=== PATIENT | female | born 1985 | race Caucasian/White ===

== ENCOUNTER 2021-12-07 06:40 | Outpatient (REF) | payer OTHER, SELFPAY ==
[2021-12-07 12:11] LABS: Alanine Aminotransferase 12 U/L (0-31); Anion Gap 15 (12-20); Aspartate Amino Transferase 14 U/L (5-31); Blood Urea Nitrogen 13 mg/dL (9-16); Calcium 9.2 mg/dL (8.4-10.2); Carbon Dioxide 24 mmol/L (22-29); Chloride 105 mmol/L (96-108); Cholesterol 167 mg/dL; Estimated Glomerular Filt Rate > 60; Glucose Fasting 97 mg/dL (60-99); HDL Cholesterol 45 mg/dL; LDL Cholesterol Calculated 103 mg/dl; Potassium 4.1 mmol/L (3.3-5.1); Sodium 140 mmol/L (135-145); Triglycerides 96 mg/dL
[2021-12-07 12:37] LABS: Vitamin D 25-OH Total 20.4 ng/mL (>30)
== END 2021-12-07 06:41 | disposition home or self-care (01) ==
LOC: HO.HMGCLDS 06:40
PROVIDERS: Visit Provider Internal Medicine
DX: Z00.01 Encounter for general adult medical examination with abnormal findings (principal); Z13.220 Encounter for screening for lipoid disorders
CPT/HCPCS: 36415; 80048; 80061; 82306; 84450; 84460

== ENCOUNTER 2024-05-31 08:10 | Outpatient (AMB) | payer OTHER, SELFPAY ==
[2024-05-31 08:10] VITALS: BP 106/70; PULSE 72; TEMP 36.8; O2SAT 98; BMI 30.4
--- NOTE | 2024-05-31 08:10 | AM.OFFWIN_ITS ---
Intake Vital Signs 05/31/24 08:10 Height 5 ft 5 in Weight 183 lb BMI 30.4 BP 106/70 Blood Pressure Location Lt brachial Position Sitting Pulse 72 Pulse Source Pulse Oximeter Temp 98.2 F Temp Source Oral Pulse Oximetry (%) 98 Intake Visit Reasons: EP Cough, SOB Intake Note: pt is here for cough and SOB Patient Tobacco Use Status: Former Tobacco user Allergies aspirin Adverse Reaction (Unknown, Verified 05/31/24 08:11) nose bleed Do you need a note to return to daycare/school/sports/work: Yes HPI HPI Comments History of Present Illness Details Patient is a 38-year-old female complaining of 2 days of a cough and shortness of breath, has well as chest tightness. She states that 2 days ago sh seda was cleaning the basement itchy thought her cough and irritation was from the dust in the basement but it seems to be continuing. She states she tested for COVID last night and this morning in both tests were negative. She denies any head congestion chest congestion sinus pain ear pain chest pain wheezing or fevers. She states she was bringing the garbage pills to the curb and she felt winded and she felt winded bringing groceries into the house. [facility] Medical History (Updated 05/31/24 @ 08:31 by Abigail Mendez PA-C) Acne vulgaris Generalized anxiety disorder Obesity (BMI 30.0-34.9) Asymptomatic microscopic hematuria Psoriasis Surgical History (Updated 03/14/23 @ 09:20 by Tresa Walden MD) Hx of breast reduction, elective No pertinent past surgical history Family History Father Alcoholism Acute [place] Paternal Grandmother Breast cancer Diabetes mellitus Social History Housing: House Patient Tobacco Use Status: Former Tobacco user e-Cigarette/Vaping Use: Never Used service: No Current occupational status: employed Cognitive needs: No Hearing needs: No Vision needs: No Review of Systems Const All systems reviewed & are unremarkable except as noted in HPI and below Physical Exam Vital Signs: Last Vital Signs Temp 98.2 F 05/31/24 08:10 Pulse 72 05/31/24 08:10 BP 106/70 05/31/24 08:10 Pulse Ox 98 07/18/24 08:10 BMI result Body Mass Index 30.4 Const General: cooperative, healthy appearing, comfortable and no acute distress Orientation/consciousness: patient oriented x3 Limitations: no limitations HEENT Head: Yes normal to inspection Ears: hearing grossly normal bilaterally, external ears normal and TM's normal bilaterally General nose exam: Normal external nose present, Normal nares present and No nasal discharge present Face and sinus: Yes normal facial exam and Yes sinuses nontender Mouth: Normal oral and palatal mucosa present and moist mucous membranes Throat: Yes tonsils normal, Yes uvula midline, Yes posterior oropharynx abnormal (Erythema) and Yes cobblestoning Eyes General: appearance normal, both eyes and all related structures Neck Neck: Yes normal visual inspection Resp Effort & Inspection: normal respiratory effort, able to speak in complete sentences, Actively coughing, no respiratory distress, not tachypneic, no tripod positioning and no use of accessory muscles Auscultation: clear to auscultation bilaterally Cardio Rate: regular rate Rhythm: regular rhythm Heart sounds: normal S1 and S2 Skin General skin exam: no rashes or lesions noted Neuro General: patient oriented x3 Extrem General: Yes normal to inspection and Yes no clubbing, cyanosis or edema Assessment & Plan Assessment & Plan (1) Environmental allergies: Code(s): Z91.09 - Other allergy status, other than to drugs and biological substances Plan: Vital signs are stable, physical exam revealed cobblestoning, likely allergies recommended [id number] allergy medication daily if no improvement in her symptoms, she already has a an appointment with her PCP on Tuesday. Gave red flag warning signs and when to call 911. Plan See above Coding Level of Care Code Est Pt Level 3 (41801) Diagnoses Environmental allergies Z91.09
== END 2024-05-31 08:42 | disposition home or self-care (01) ==
PROVIDERS: PCP Internal Medicine; Visit Provider Physician Assistant
DX: Z91.09 Other allergy status, other than to drugs and biological substances (principal)
CPT/HCPCS: 99213

== ENCOUNTER 2024-06-01 15:46 | Outpatient (AMB) | payer OTHER, SELFPAY ==
--- NOTE | 2024-06-01 15:53 | AM.OFFWIN_ITS ---
Intake Vital Signs 06/01/24 15:54 Height 5 ft 5 in Weight 183 lb BMI 30.4 BP 118/80 Blood Pressure Location Rt brachial Position Sitting Pulse 102 H Pulse Source Pulse Oximeter Temp 103.1 F H Temp Source Oral Pulse Oximetry (%) 97 Oxygen Delivery Method Room Air Intake Visit Reasons: EP chills, sweats Intake Note: pt c/o cough, chest tightness, chills/sweats. Started Tuesday Patient Tobacco Use Status: Former Tobacco user Allergies aspirin Adverse Reaction (Unknown, Verified 06/01/24 15:53) nose bleed Do you need a note to return to daycare/school/sports/work: No HPI HPI Comments History of Present Illness Details 38 y/o female patient who presents to [facility] with c/o coughing, chest tightness, generalized malaise and high fever. Reports symptoms started Tuesday. She has been testing at home for COVID with negative results. Denies Nausea or vomiting. Reports good appetite. [facility] Medical History (Updated 05/31/24 @ 08:31 by Abigail Mendez PA-C) Acne vulgaris Generalized anxiety disorder Obesity (BMI 30.0-34.9) Asymptomatic microscopic hematuria Psoriasis Surgical History (Updated 03/14/23 @ 09:20 by Tresa Walden MD) Hx of breast reduction, elective No pertinent past surgical history Family History Father Alcoholism Acute [place] Paternal Grandmother Breast cancer Diabetes mellitus Social History Housing: House Patient Tobacco Use Status: Former Tobacco user e-Cigarette/Vaping Use: Never Used service: No Current occupational status: employed Cognitive needs: No Hearing needs: No Vision needs: No Review of Systems Const All systems reviewed & are unremarkable except as noted in HPI and below Physical Exam Vital Signs: Last Vital Signs Temp 103.1 F H 06/01/24 15:54 Pulse 102 H 06/01/24 15:54 BP 118/80 06/01/24 15:54 Pulse Ox 97 06/01/24 15:54 Oxygen Delivery Method Room Air 06/01/24 15:54 BMI result Body Mass Index 30.4 Const General: comfortable and no acute distress Orientation/consciousness: patient oriented x3 HEENT Head: Yes normocephalic Ears: external ears normal and TM's normal bilaterally General nose exam: Normal nasal mucous membranes and turbinates present Resp Effort & Inspection: normal respiratory effort, able to speak in complete sentences and Actively coughing Auscultation: clear to auscultation bilaterally, no crackles, no rales, no rhonchi and no wheezes Cardio Heart sounds: S1 normal heart sound present and S2 normal heart sound present Neuro General: patient oriented x3, gait normal and moves all extremities Psych Speech and movement: Normal speech and movement present Assessment & Plan Assessment & Plan (1) Cough in adult: Code(s): R05.9 - Cough, unspecified Plan: OTC cough remedies Warm fluids with honey Rest (2) Fever: Code(s): R50.9 - Fever, unspecified Qualifiers: Fever type: unspecified Qualified Code(s): R50.9 - Fever, unspecified Plan: Acetaminophen for pain relief Medications: New acetaminophen 1,000 mg (2 x 500 mg) PO Q6H PRN 30 caps 0RF fever R50.9 - Fever, unspecified doxycycline hyclate 100 mg PO BID 10 days 20 caps 0RF R05.9 - Cough, unspecified prednisone 50 mg PO DAILY 3 days 3 tabs 0RF R05.9 - Cough, unspecified benzonatate 100 mg PO TID 60 caps 0RF R05.9 - Cough, unspecified Coding Level of Care Code Est Pt Level 3 (52201) Diagnoses Cough in adult R05.9 Fever, unspecified fever cause R50.9 Fever type: unspecified Time Spent (min) 15
[2024-06-01 15:54] VITALS: BP 118/80; PULSE 102; TEMP 39.5; O2SAT 97; BMI 30.4
== END 2024-06-01 16:17 | disposition home or self-care (01) ==
PROVIDERS: PCP Internal Medicine; Visit Provider Nurse Practitioner Family
DX: R05.9 Cough, unspecified (principal); R50.9 Fever, unspecified
CPT/HCPCS: 99213

== ENCOUNTER 2024-06-04 08:14 | Outpatient (AMB) | payer OTHER, SELFPAY ==
[2024-06-04 08:22] VITALS: BP 110/70; PULSE 84; O2SAT 98; BMI 30.2
--- NOTE | 2024-06-04 08:22 | MHC.PC.OV ---
Vital Signs 06/04/24 08:22 Height 5 ft 5 in Weight 181 lb 8 oz BMI 30.2 BP 110/70 Blood Pressure Location Lt brachial Position Sitting Pulse 84 Pulse Source Pulse Oximeter Pulse Oximetry (%) 98 Oxygen Delivery Method Room Air Intake Visit Reasons: Annual PE Intake Note: Pt is here today for her PE: Last papsmear 11/27/20 Is last menstrual period known: Yes Last menstrual period: 05/18/24 Allergies aspirin Adverse Reaction (Unknown, Verified 06/04/24 08:35) nose bleed Medication List - Last Reconciled 06/04/24 by Tresa Walden MD acetaminophen 1,000 mg (2 x 500 mg) PO Q6H PRN benzonatate 100 mg PO TID buspirone 5 mg PO BID doxycycline hyclate 100 mg PO BID 10 days fluoride (sodium) 1.1% (SF 5000 Plus) appl PO levonorgestrel (Liletta) intrauterine risankizumab-rzaa (Skyrizi) mg subcut Tobacco use date assessed: 06/04/24 Dental Screening Dental Screen Date: 06/04/24 Did you have a dental visit in the last 12 months?: Yes Did you have a dental problem in the last 6 months where you did not have access to dental care?: No Was dental information given to patient?: Patient has dentist HPI Annual PE HPI Details 38 Year old lady here today for physical exam. She is up-to-date with her cervical cancer screening, last done 2020 with normal findings done at [facility] with Dr. Galvan. Currently sees Dr. Parsons , receiving treatment for her psoriasis, currently on Skyrizi with good results. She takes buspirone 5 mg 1 tablet twice a day for her generalized anxiety disorder which has been helping. [facility] Medical History (Updated 06/04/24 @ 09:11 by Tresa Walden MD) History of vitamin D deficiency Acne vulgaris Generalized anxiety disorder Obesity (BMI 30.0-34.9) Asymptomatic microscopic hematuria Psoriasis Surgical History Hx of breast reduction, elective No pertinent past surgical history Family History Father Alcoholism Acute [place] Paternal Grandmother Breast cancer Diabetes mellitus Social History Housing: House Patient Tobacco Use Status: Former Tobacco user e-Cigarette/Vaping Use: Never Used service: No Current occupational status: employed Cognitive needs: No Hearing needs: No Vision needs: No Female Reproductive History Menstrual Date of last menstrual period: 05/18/24 Questionnaire PHQ-9 Over the last 2 weeks, how often have you been bothered by any of the following problems? 1. Little interest or pleasure in doing things: not at all 2. Feeling down, depressed, or hopeless: not at all 3. Trouble falling or staying asleep, or sleeping too much: not at all 4. Feeling tired or having little energy: not at all 5. Poor appetite or overeating: not at all 6. Feeling bad about yourself - or that you are a failure or have let yourself or your family down: not at all 7. Trouble concentrating on things, such as reading the newspaper or watching television: not at all 8. Moving or speaking so slowly that other people could have noticed. Or the opposite - being so fidgety or restless that you have been moving around a lot more than usual: not at all 9. Thoughts that you would be better off or of hurting yourself in some way: not at all Total score: 0 Depression Screening Interpretation: Negative Depression Screening Done: Yes 15089 - PHQ-9 Billing: Yes Source: Developed by Drs. Arias Quan, Leti Maldonado, Antwon Milner and colleagues, with an educational el from [employer] ([employer] Thrive Questionnaire Date Thrive assessed: 06/04/24 I am a: Patient What is your living situation today?: I have a steady place to live Within the past 12 months, did the food you bought not last and you didn't have the money to get more?: Never true Within the past 12 months, did you worry whether your food would run out before you got money to buy more?: Never true Do you have trouble paying for medicines?: No Do you have trouble getting transportation to medical appointments?: No Do you have trouble paying your heating and electricity bill?: No Do you have trouble taking care of your child, family member or friend?: No Do you have trouble with day-to-day activities such as bathing, preparing meals, shopping, managing finances, etc.?: No Are you currently unemployed and looking for a job?: No Are you interested in more education?: No Please select the resources that you would like help with: Housing/Fci Currently or been in a relationship where the following occur: No concerns reported THRIVE Score: 0 AUDIT C Alcohol Use Questionnaire (AUDIT-C) 1. How often do you have a drink containing alcohol?: Monthly or less 2. How many drinks containing alcohol do you have on a typical day when you are drinking?: 1 or 2 3. How often do you have six or more drinks on one occasion?: Never Total Score: 1 ADRIANNA-7 AMB Questionnaire ADRIANNA-7 Date ADRIANNA - 7 assessed: 06/04/24 Feeling nervous, anxious, or on edge: 0 = Not at all Not being able to stop or control worryin = Not at all Worrying too much about different things: 0 = Not at all Trouble relaxin = Not at all Being so restless that it is hard to sit still: 0 = Not at all Becoming easily annoyed or irritable: 0 = Not at all Feeling afraid as if something awful might happen: 0 = Not at all Total ADRIANNA-7 score (0-4 normal; 5-9 mild; 10-14 moderate; 15-21 severe): 0 Source: Developed by Drs. Arias Quan, Leti Maldonado, Antwon Milner and colleagues, with an educational el from [employer] ([employer] ADRIANNA-7 Assessment Billing ADRIANNA-7 Assessment Tool: ADRIANNA-7 Assessment 09998 Review of Systems Const Denies body aches, Denies fatigue, Denies fever(s), Denies headache(s), Denies weakness and Reports weight loss Eyes Reports no additional complaints ENT Reports Normal hearing present and Denies headache(s) Card Denies chest pain, Denies lightheadedness, Denies palpitations and Denies dyspnea Resp Denies chest congestion, Denies cough, Denies dyspnea and Denies wheezing GI Denies abdominal pain, Denies change in bowel habits and Denies heartburn Denies urinary frequency and Denies urinary urgency Musc Reports no additional complaints Skin/Breast Denies breast pain, Denies breast mass and Denies rash Neuro Reports Normal hearing present, Denies headache(s), Denies Sensory deficit (Neuro) and Denies weakness Psych Reports no additional complaints Endo Denies fatigue and Denies palpitations Wei/Lymph Reports no additional complaints Aller/Immun Denies wheezing Physical exam (Primary Care) Vital Signs: Last Vital Signs Pulse 84 06/04/24 08:22 BP 110/70 06/04/24 08:22 Pulse Ox 98 06/04/24 08:22 Oxygen Delivery Method Room Air 06/04/24 08:22 BMI result Body Mass Index 30.2 Tobacco/Smoking Status: Tobacco use Status Tobacco use date assessed 06/04/24 06/04/24 08:31 Patient Tobacco Use Status Former Tobacco user 06/04/24 08:23 e-Cigarette/Vaping Use Never Used 06/04/24 08:23 PHQ-9: PHQ-9 Score PHQ-9: Total score 0 06/04/24 09:14 Depression Screening Interpretation: Negative Thrive Assessment: Date of Thrive Assessment Date Thrive assessed 06/04/24 06/04/24 08:31 Currently or been in a relationship where the following occur: No concerns reported Const General: no acute distress and alert Orientation/consciousness: patient oriented x3 Limitations: no limitations HENMT Head: Yes normal to inspection, Yes normocephalic and Yes atraumatic Ears: hearing grossly normal bilaterally, external ears normal, TM's normal bilaterally and EAC's normal General nose exam: Normal external nose present, Normal nasal mucous membranes and turbinates present and No nasal discharge present Face and sinus: Yes face symmetric Mouth: Normal oral and palatal mucosa present, tongue normal and moist mucous membranes Eyes Conjunctivae: conjunctivae normal Sclerae: sclerae normal Pupils: Equal, round and reactive pupils present EOM: EOMs intact bilaterally Neck Neck: Yes full ROM and Yes no lymphadenopathy Thyroid: Thyroid normal Carotids: normal carotid upstroke Chest Chest palpation & inspection: normal inspection of the chest Resp Effort & Inspection: normal respiratory effort and able to speak in complete sentences Auscultation: clear to auscultation bilaterally Cardio Jugular venous distension: no JVD Rate: regular rate Rhythm: regular rhythm Heart sounds: S1 normal heart sound present and S2 normal heart sound present GI Inspection: Yes normal to inspection Palpation (GI): Soft to palpation Auscultation: normal bowel sounds General: Yes no CVA tenderness Back/Spine/Pelvis Back: no CVA tenderness and No back tenderness Skin Other: Surgical scar noted on under side of both breasts and lower abdomen status post mammoplasty and tummy tuck a month ago Neuro General: patient oriented x3, gait normal, moves all extremities, no focal motor deficits and CN's II-XI intact bilaterally Cranial nerves: Yes Equal, round and reactive pupils present and Yes Normal hearing present Cognition (Neuro): normal cognition Gait exam (Neuro): Normal gait present Motor exam (neuro): 5/5 motor strength present throughout Sensory Exam: No Sensory deficit (Neuro) Extrem General: Yes normal to inspection, Yes full ROM, Yes no pedal edema and Yes normal gait Psych Appearance: grossly normal and well kempt Mental Status: mental status grossly normal Speech and movement: Normal speech and movement present Affect: Anxious affect present Attitude: cooperative Thought process: Normal thought process present Thought content: Normal thought content present Assessment and Plan Assessment & Plan (1) Annual visit for general adult medical examination with abnormal findings: Code(s): Z00.01 - Encounter for general adult medical examination with abnormal findings Plan: Will check appropriate labs. Continue regular dental visit every 6 months and regular eye exams, at least every 2 years. Take adequate calcium in diet and vitamin-D 3 at 2000 IU per cap once a day, in addition to weight-bearing exercises to help maintain good muscle tone and weight control. Instructed to do self-breast exam, and recommended to get yearly mammogram, starting at age 40. Up-to-date with her cervical cancer screening, goes to [facility], sees Dr. Galvan. She has had COVID vaccines in the past but does not want to get the booster, does not get flu shots or Tdap Orders: Orders Alanine Aminotransferase 06/04/24 Z00.01 - Encounter for general adult medical examination with abnormal findings, Z13.1 - Encounter for screening for diabetes mellitus, Z13.220 - Encounter for screening for lipoid disorders, Z86.39 - Personal history of other endocrine, nutritional and metabolic disease Basic Metabolic Panel Fasting 06/04/24 Z00.01 - Encounter for general adult medical examination with abnormal findings, Z13.1 - Encounter for screening for diabetes mellitus, Z13.220 - Encounter for screening for lipoid disorders, Z86.39 - Personal history of other endocrine, nutritional and metabolic disease Lipid Panel 06/04/24 Z00.01 - Encounter for general adult medical examination with abnormal findings, Z13.1 - Encounter for screening for diabetes mellitus, Z13.220 - Encounter for screening for lipoid disorders, Z86.39 - Personal history of other endocrine, nutritional and metabolic disease Vitamin D 25-OH Total 06/04/24 Z00.01 - Encounter for general adult medical examination with abnormal findings, Z13.1 - Encounter for screening for diabetes mellitus, Z13.220 - Encounter for screening for lipoid disorders, Z86.39 - Personal history of other endocrine, nutritional and metabolic disease Aspartate Amino Transferase 06/04/24 Z00.01 - Encounter for general adult medical examination with abnormal findings, Z13.1 - Encounter for screening for diabetes mellitus, Z13.220 - Encounter for screening for lipoid disorders, Z86.39 - Personal history of other endocrine, nutritional and metabolic disease Medications: New albuterol sulfate 90 mcg/actuation 2 puffs inhalation Q6H PRN 8.5 grams 0RF shortness of breath or wheezing Changed From buspirone 5 mg PO BID 60 tabs 0RF F41.1 - Generalized anxiety disorder To buspirone 5 mg PO BID 3 months 180 tabs 4RF F41.1 - Generalized anxiety disorder Coding Level of Care Code Est Pt Prev Care 18-39y(63554) Diagnoses Annual visit for general adult medical examination with abnormal findings Z00. Additional Codes ADRIANNA-7 Assessment Billing - ADRIANNA-7 Assessment Tool: ADRIANNA-7 Assessment 01331 ([id number])
== END 2024-06-04 09:25 | disposition home or self-care (01) ==
PROVIDERS: PCP Internal Medicine; Visit Provider Internal Medicine
DX: Z00.00 Encounter for general adult medical examination without abnormal findings (principal)
CPT/HCPCS: 99395

== ENCOUNTER 2024-12-11 08:57 | Outpatient (AMB) | payer OTHER, SELFPAY ==
--- NOTE | 2024-12-11 10:10 | MHC.OFFWIV ---
Intake Vital Signs 12/11/24 10:11 Weight 177 lb BP 112/80 Blood Pressure Location Rt brachial Position Sitting Pulse 71 Pulse Source Pulse Oximeter Intake Visit Reasons: EP-constipation Intake Note: Patient here for constipation that has been present a while. Patient Tobacco Use Status: Former Tobacco user Allergies aspirin Adverse Reaction (Unknown, Verified 12/11/24 10:12) nose bleed HPI HPI Comments History of Present Illness Details This is a 39-year-old female with a past medical history of anxiety presenting for evaluation of constipation. Patient states this has been a lifelong issue for her in her current regimen is taking a probiotic, fiber gummy and Colace daily. Patient states since giving up ?junk food? at the beginning of the year her bowel movements have become significantly less frequent. Patient states she is only having 1 bowel movement a week but she has to take a Dulcolax laxative to initiate a bowel movement. Patient's last bowel movement was this morning. She denies having any nausea, vomiting, abdominal cramping, dark or bloody stools. Additionally, patient has previous abdominal surgical history includes abdominoplasty only. REPLACED BY [facility] Medical History (Updated 12/11/24 @ 10:58 by Maia Ceballos PA-C) History of vitamin D deficiency Acne vulgaris Generalized anxiety disorder Obesity (BMI 30.0-34.9) Asymptomatic microscopic hematuria Psoriasis Surgical History Hx of breast reduction, elective No pertinent past surgical history Family History Father Alcoholism Acute [place] Paternal Grandmother Breast cancer Diabetes mellitus Social History Housing: House Patient Tobacco Use Status: Former Tobacco user e-Cigarette/Vaping Use: Never Used service: No Current occupational status: employed Cognitive needs: No Hearing needs: No Vision needs: No Review of Systems Const All systems reviewed & are unremarkable except as noted in HPI and below Eyes Reports no additional complaints ENT Reports no additional complaints Card Reports no additional complaints Resp Reports no additional complaints GI Denies abdominal pain, Reports constipation, Denies GI cramping, Denies diarrhea, Denies loose stools, Denies nausea and Denies vomiting Reports no additional complaints Musc Reports no additional complaints Skin/Breast Reports system reviewed and no additional complaints, except as documented Neuro Reports no additional complaints Psych Reports no additional complaints Endo Reports no additional complaints Wei/Lymph Reports no additional complaints Aller/Immun Reports no additional complaints Physical Exam Vital Signs: Last Vital Signs Pulse 71 12/11/24 10:11 BP 112/80 12/11/24 10:11 Const General: cooperative, healthy appearing, comfortable, no acute distress, well developed, alert, awake and Physically active; No lethargic Nutritional Appearance: average body habitus and well nourished Orientation/consciousness: patient oriented x3 and No lethargic Limitations: no limitations GI Inspection: Yes normal to inspection, No distended, No Abdominal panniculus present and No obesity Palpation (GI): Soft to palpation, nontender, no guarding and not rigid Auscultation: normal bowel sounds Rectal Exam - Female: deferred Skin General skin exam: no rashes or lesions noted Neuro General: patient oriented x3 Psych Appearance: grossly normal Mental Status: mental status grossly normal Insight: Good insight present (Psych) Judgement: Good judgement present (Psych) Assessment & Plan Assessment & Plan (1) Constipation: Comment: Patient's abdomen is soft and nontender. Patient will be prescribed lactulose to take daily for management of her chronic constipation. Patient is encouraged to follow up with her primary care provider to discuss a referral to Gastroenterology for ongoing evaluation and management. Code(s): K59.00 - Constipation, unspecified Qualifiers: Constipation type: unspecified constipation type Qualified Code(s): K59.00 - Constipation, unspecified Plan: Lactulose 10 g daily. Increase clear fluids and activity daily as tolerated. Medications: New lactulose 10 grams (15 mL) PO DAILY 3,785 mL 0RF Coding Level of Care Code Est Pt Level 3 (62238) Diagnoses Constipation, unspecified constipation type K59.00 Constipation type: unspecified constipation type Time Spent (min) 20
[2024-12-11 10:11] VITALS: BP 112/80; PULSE 71
== END 2024-12-11 10:58 | disposition home or self-care (01) ==
PROVIDERS: PCP Internal Medicine; Visit Provider Physician Assistant
DX: K59.00 Constipation, unspecified (principal)

== ENCOUNTER → 2024-12-11 08:57 | Outpatient (BNVA) | payer OTHER, SELFPAY | PROVIDERS: PCP Internal Medicine ==

== ENCOUNTER 2024-12-14 08:18 | Outpatient (AMB) | payer OTHER, SELFPAY ==
--- NOTE | 2024-12-14 08:14 | A.OFFPC_ITS ---
Intake Visit Reasons: F/U walk-in/referral Allergies aspirin Adverse Reaction (Unknown, Verified 12/14/24 08:46) nose bleed Medication List - Last Reconciled 12/14/24 by Tresa Walden MD buspirone 5 mg PO BID 3 months fluoride (sodium) 1.1% (SF 5000 Plus) appl PO lactulose 10 grams (15 mL) PO DAILY levonorgestrel (Liletta) intrauterine Tobacco use date assessed: 12/14/24 Dental Screening Dental Screen Date: 12/14/24 Did you have a dental visit in the last 12 months?: Yes Did you have a dental problem in the last 6 months where you did not have access to dental care?: No Was dental information given to patient?: Patient has dentist HPI F/U walk-in/referral HPI Details 39-year-old lady here today for follow-u p after recent visit to the walk-in clinic complaining of constipation. She has never had any regular bowel movements in the past, usually would go 3 to 4 times a week only, but lately she has been going less frequent, and now feels bloated all the time. She states that these issue started after she gave up eating junk food and trying to eat a healthier diet. She would only go at least once a week only and it usually is hard, and has to take Dulcolax to initiate a bowel movement. Denies any abdominal cramping, no nausea, no melena or bright red blood in the stool noted. She has been diagnosed to have anxiety disorder, but controlled on buspirone. She was prescribed lactulose by the walk-in provider, which she just started taking yesterday morning and did have a bowel movement after taking it which was soft [facility] Medical History History of vitamin D deficiency Acne vulgaris Generalized anxiety disorder Obesity (BMI 30.0-34.9) Asymptomatic microscopic hematuria Psoriasis Surgical History Hx of breast reduction, elective No pertinent past surgical history Family History Father Alcoholism Acute [place] Paternal Grandmother Breast cancer Diabetes mellitus Social History Housing: House Patient Tobacco Use Status: Former Tobacco user e-Cigarette/Vaping Use: Never Used service: No Current occupational status: employed Cognitive needs: No Hearing needs: No Vision needs: No Questionnaire PHQ-9 Over the last 2 weeks, how often have you been bothered by any of the following problems? 1. Little interest or pleasure in doing things: not at all 2. Feeling down, depressed, or hopeless: not at all 3. Trouble falling or staying asleep, or sleeping too much: not at all 4. Feeling tired or having little energy: not at all 5. Poor appetite or overeating: not at all 6. Feeling bad about yourself - or that you are a failure or have let yourself or your family down: not at all 7. Trouble concentrating on things, such as reading the newspaper or watching television: not at all 8. Moving or speaking so slowly that other people could have noticed. Or the opposite - being so fidgety or restless that you have been moving around a lot more than usual: not at all 9. Thoughts that you would be better off or of hurting yourself in some way: not at all Total score: 0 Depression Screening Interpretation: Negative Depression Screening Done: Yes 37619 - PHQ-9 Billing: Yes Source: Developed by Drs. Arias Quan, Leti Maldonado, Antwon Milner and colleagues, with an educational el from [employer]. Thrive Questionnaire Date Thrive assessed: 12/14/24 I am a: Patient What is your living situation today?: I have a steady place to live Within the past 12 months, did the food you bought not last and you didn't have the money to get more?: Never true Within the past 12 months, did you worry whether your food would run out before you got money to buy more?: Never true Do you have trouble paying for medicines?: No Do you have trouble getting transportation to medical appointments?: No Do you have trouble paying your heating and electricity bill?: No Do you have trouble taking care of your child, family member or friend?: No Do you have trouble with day-to-day activities such as bathing, preparing meals, shopping, managing finances, etc.?: No Are you currently unemployed and looking for a job?: No Are you interested in more education?: No Please select the resources that you would like help with: None Currently or been in a relationship where the following occur: No concerns reported THRIVE Score: 0 AUDIT C Alcohol Use Questionnaire (AUDIT-C) 2. How many drinks containing alcohol do you have on a typical day when you are drinking?: 1 or 2 3. How often do you have six or more drinks on one occasion?: Never Total Score: 0 ADRIANNA-7 AMB Questionnaire ADRIANNA-7 Date ADRIANNA - 7 assessed: 06/20/24 Feeling nervous, anxious, or on edge: 0 = Not at all Not being able to stop or control worryin = Not at all Worrying too much about different things: 0 = Not at all Trouble relaxin = Not at all Being so restless that it is hard to sit still: 0 = Not at all Becoming easily annoyed or irritable: 0 = Not at all Feeling afraid as if something awful might happen: 0 = Not at all Total ADRIANNA-7 score (0-4 normal; 5-9 mild; 10-14 moderate; 15-21 severe): 0 Source: Developed by Drs. Arias Quan, Leti Maldonado, Antwon Milner and colleagues, with an educational el from [employer]. Review of Systems Const Reports no additional complaints ENT Reports no additional complaints Card Reports no additional complaints Resp Reports no additional complaints GI Reports as per HPI, Denies abdominal pain, Denies melena, Denies hematochezia, Denies GI cramping, Denies dyspepsia, Denies heartburn and Denies nausea Physical exam (Primary Care) Tobacco/Smoking Status: Tobacco use Status Tobacco use date assessed 12/14/24 12/14/24 08:16 Patient Tobacco Use Status Former Tobacco user 12/14/24 08:16 e-Cigarette/Vaping Use Never Used 12/14/24 08:16 PHQ-9: PHQ-9 Score PHQ-9: Total score 0 12/14/24 08:17 Depression Screening Interpretation: Negative Thrive Assessment: Date of Thrive Assessment Date Thrive assessed 12/14/24 12/14/24 08:17 Currently or been in a relationship where the following occur: No concerns reported Telehealth Telehealth Telehealth [facility]: [facility] Location of provider rendering services: practice address Location of patient: address on file Patient Identification confirmed using: Name, : Yes Telehealth method: video Patient verbally consented to treatment: Yes Patient verbally consented to billing insurance company: Yes Patient informed of any privacy concerns related to visit: Yes Minutes spent on Phone/Video with Pt.: 15 Coding Level of Care Code Tele Est Pt Level 3 (87160) Diagnoses Constipation, unspecified constipation type K59.00 Constipation type: unspecified constipation type Additional Codes PHQ-9 - 49840 - PHQ-9 Billing: Yes ([id number]) Assessment & Plan Assessment & Plan (1) Constipation: Code(s): K59.00 - Constipation, unspecified Category: Medical Qualifiers: Constipation type: unspecified constipation type Qualified Code(s): K59.00 - Constipation, unspecified Plan: Has had a bowel movement with lactulose but still not formed. Will try her on dicyclomine for treatment of possible IBS with constipation, prescription sent for 20 mg dicyclomine to take 1 tablet 3 times a day. Patient advised to initially start taking it 1 tablet in the morning before breakfast and 1 tablet at night before supper. He adjust dosing frequency depending on her symptoms. Continue with eating more fiber in vegetables, nuts, whole grain, and staying well hydrated, get regular exercise, may also try eating 2 pitted Prunes daily . call back in 2 weeks if no improvement of symptoms noted Medications: New dicyclomine 20 mg PO TID 90 tabs 0RF
== END 2024-12-14 09:07 | disposition home or self-care (01) ==
LOC: HO.HMCC 08:18
PROVIDERS: PCP Internal Medicine; Visit Provider Internal Medicine
DX: K59.00 Constipation, unspecified (principal)

== ENCOUNTER → 2024-12-14 08:18 | Outpatient (BNVA) | payer OTHER, SELFPAY | PROVIDERS: PCP Internal Medicine; Visit Provider Internal Medicine | DX: K59.00 Constipation, unspecified (principal) | CPT/HCPCS: 96127 ==

== ENCOUNTER 2025-06-21 15:38 | Outpatient (AMB) | payer OTHER, SELFPAY ==
--- NOTE | 2025-06-21 16:24 | AM.OFFWIN_ITS ---
Intake Vital Signs 06/21/25 16:25 Height 5 ft 5 in Weight 146 lb BMI 24.3 BP 102/60 Blood Pressure Location Rt brachial Position Sitting Pulse 89 Pulse Source Pulse Oximeter Temp 98.1 F Temp Source Oral Pulse Oximetry (%) 98 Oxygen Delivery Method Room Air Intake Visit Reasons: EP headaches, slurred speech for 5min (went away) Intake Note: * presents with h/o headaches lasting 2-3 days. yesterday when waking up her eyes felt sore and she had slurred speech about 20 min later that lasted 5 m in. denies and s/s today Patient Tobacco Use Status: Former Tobacco user Allergies aspirin Adverse Reaction (Unknown, Verified 06/21/25 16:29) nose bleed Do you need a note to return to daycare/school/sports/work: No HPI HPI Comments History of Present Illness Details This is a 39-year-old female with a past medical history of anxiety, psoriasis and IBS-C presenting for evaluation of headaches and an episode of slurred speech that occurred yesterday afternoon when she was with her 15-year-old daughter. Patient states that she will occasionally get cluster headaches that will last for 2-3 days. Patient states that she has had headaches since Tuesday but woke up from a nap yesterday afternoon and continued to have a left-sided headache but after waking felt a soreness in her eyes. Patient states she was talking with her daughter and she had slurred nonsensical speech for approximately 5 minutes. Patient states that she was able to continue talking and ambulating during this 5 minutes but states that her speech did not make sense. Patient denies any head injury, fevers, chills, visual changes, alcohol use or illicit drug use. Patient states that her hea dache resolved last night and she has had no headache, slurred speech or other neurological findings throughout the day today. [facility] Medical History (Updated 06/21/25 @ 17:05 by Maia Christianson PA-C) Psoriasis vulgaris History of vitamin D deficiency Acne vulgaris Generalized anxiety disorder Obesity (BMI 30.0-34.9) Asymptomatic microscopic hematuria Psoriasis Surgical History Hx of breast reduction, elective No pertinent past surgical history Family History Father Alcoholism Acute [place] Paternal Grandmother Breast cancer Diabetes mellitus Social History Housing: House Patient Tobacco Use Status: Former Tobacco user e-Cigarette/Vaping Use: Never Used service: No Current occupational status: employed Cognitive needs: No Hearing needs: No Vision needs: No Review of Systems Const All systems reviewed & are unremarkable except as noted in HPI and below Denies chills, Denies difficulty sleeping, Denies fatigue, Denies fever(s), Reports headache(s) and Denies weakness Eyes Reports no additional complaints, Denies blurry vision, Denies change in vision, Denies loss of vision, Denies spots in vision and Reports other ( soreness in eyes yesterday that resolved yesterday) ENT Reports no additional complaints, Denies vertigo, Denies dizziness, Denies otalgia, Reports headache(s), Denies odynophagia, Denies disequilibrium, Denies sinus pressure and Denies sore throat Card Denies chest pain and Denies dyspnea Resp Denies cough and Denies dyspnea GI Denies odynophagia Musc Reports no additional complaints and Denies abnormal gait Skin/Breast Reports system reviewed and no additional complaints, except as documented Neuro Reports Abnormal speech present, Denies abnormal gait, Denies behavioral changes, Denies confusion, Denies vertigo, Denies dizziness, Reports headache(s), Denies lack of coordination, Denies focal weakness, Denies loss of vision, Denies memory loss, Denies disequilibrium and Denies weakness Psych Denies behavioral changes, Denies confusion and Denies memory loss Endo Denies fatigue Wei/Lymph Reports no additional complaints Physical Exam Vital Signs: Last Vital Signs Temp 98.1 F 06/21/25 16:25 Pulse 89 06/21/25 16:25 BP 102/60 06/21/25 16:25 Pulse Ox 98 06/21/25 16:25 Oxygen Delivery Method Room Air 06/21/25 16:25 BMI result Body Mass Index 24.3 Const General: cooperative, healthy appearing, comfortable, no acute distress, well developed, alert, awake and Physically active; No confusion Nutritional Appearance: average body habitus Orientation/consciousness: patient oriented x3 and No confusion Limitations: no limitations Eyes General: appearance normal, both eyes and all related structures Visual Fernandez: normal visual fernandez by confrontation Pupils: Equal, round and reactive pupils present EOM: No Nystagmus present Direct Ophthalmoscopy: normal light reflex and no photophobia Skin General skin exam: no rashes or lesions noted Neuro General: patient oriented x3, moves all extremities, no focal motor deficits, CN 's II-XI intact bilaterally and No confusion Cranial nerves: Yes CN's II-XII intact bilaterally, Yes Equal, round and reactive pupils present, Yes Bilaterally intact EOM present, Yes Nystagmus not present and No Nystagmus present Cognition (Neuro): normal cognition Speech: Abnormal speech present Gait exam (Neuro): Normal gait present, not ataxic and Other gait observations present (Patient able to walk heel to toe without any ataxia) Motor exam (neuro): 5/5 motor strength present throughout Coordination: [id number] test normal, [id number] test normal and tandem gait normal Psych Appearance: grossly normal Mental Status: mental status grossly normal Insight: Good insight present (Psych) Judgement: Good judgement present (Psych) Assessment & Plan Assessment & Plan (1) Dysarthria: Comment: Patient reports transient dysarthria yesterday however at this time the patient is neurologically intact, oriented x3 with no weakness or other abnormal neurological findings. Patient states there has been no lingering of her symptoms today. Code(s): R47.1 - Dysarthria and anarthria Plan: Patient is instructed to go to the emergency department if symptoms recur. She is in agreement with this plan of care. Coding Level of Care Code Est Pt Level 4 (48773) Diagnoses Dysarthria R47.1 Time Spent (min) 25
[2025-06-21 16:25] VITALS: BP 102/60; PULSE 89; TEMP 36.7; O2SAT 98; BMI 24.3
== END 2025-06-21 16:59 | disposition home or self-care (01) ==
PROVIDERS: PCP Internal Medicine; Visit Provider Physician Assistant
DX: R47.1 Dysarthria and anarthria (principal)

== ENCOUNTER 2025-08-01 07:57 | Outpatient (AMB) | payer OTHER, SELFPAY ==
[2025-08-01 08:04] VITALS: BP 106/70; PULSE 74; RESP 15; TEMP 36.6; O2SAT 96; BMI 23.5
--- NOTE | 2025-08-01 08:04 | A.OFFPC_ITS ---
Vital Signs 08/01/25 08:04 Height 5 ft 5 in Weight 141 lb BMI 23.5 BP 106/70 Blood Pressure Location Rt brachial Position Sitting Respiration 15 Pulse 74 Pulse Source Pulse Oximeter Temp 97.9 F Temp Source Oral Pulse Oximetry (%) 96 Oxygen Delivery Method Room Air Intake Visit Reasons: Annual PE Intake Note: Pt is here today for her PE Is last menstrual period known: Yes Last menstrual period: 07/16/25 Allergies aspirin Adverse Reaction (Unknown, Verified 08/01/25 08:23) nose bleed Medication List - Last Reconciled 08/01/25 by Tresa Walden MD buspirone 5 mg PO BID 3 months fluoride (sodium) 1.1% (SF 5000 Plus) appl PO lactobacillus combination no.9 (Adult 50 Plus Probiotic) PO levonorgestrel (Liletta) intrauterine Linzess (linaclotide) 72 mcg PO QAM NS Tobacco use date assessed: 08/01/25 Dental Screening Dental Screen Date: 08/01/25 Did you have a dental visit in the last 12 months?: Yes Did you have a dental problem in the last 6 months where you did not have access to dental care?: No Was dental information given to patient?: Patient has dentist HPI Annual PE HPI Details 40-year-old female here today for her ph ysical exam. She is up-to-date with her cervical cancer screening, goes to [facility] with last Pap smear done in 2020 with negative findings. Having intermittent episodes of spotting well on Lilleta, remain removing it, as her is getting a vasectomy in the near future Goes having intermittent episodes of left a through areolar pain, mammogram done 01/30/2025 and a left breast ultrasound which showed benign findings. Takes buspirone for generalized anxiety attack which has been helping especially lately that she has been having a lot of problems at work Started smoking again, less than half a pack a day, would like to try taking Chantix again to help with quitting smoking. Has taken it in the past and found it to be helpful Does not want to get any vaccines. History of psoriasis previously on Skyrizi given at [facility] by Dr. Rios, no flare ups, has been off it now for a year [facility] Medical History History of vitamin D deficiency Generalized anxiety disorder Obesity (BMI 30.0-34.9) Asymptomatic microscopic hematuria Psoriasis Surgical History Hx of breast reduction, elective No pertinent past surgical history Family History Father Alcoholism Acute [place] Paternal Grandmother Breast cancer Diabetes mellitus Social History Housing: House Patient Tobacco Use Status: Former Tobacco user e-Cigarette/Vaping Use: Never Used service: No Current occupational status: employed Cognitive needs: No Hearing needs: No Vision needs: No Female Reproductive History Menstrual Date of last menstrual period: 07/16/25 Questionnaire PHQ-9 Over the last 2 weeks, how often have you been bothered by any of the following problems? 1. Little interest or pleasure in doing things: not at all 2. Feeling down, depressed, or hopeless: not at all 3. Trouble falling or staying asleep, or sleeping too much: not at all 4. Feeling tired or having little energy: not at all 5. Poor appetite or overeating: several days 6. Feeling bad about yourself - or that you are a failure or have let yourself or your family down: several days 7. Trouble concentrating on things, such as reading the newspaper or watching television: not at all 8. Moving or speaking so slowly that other people could have noticed. Or the opposite - being so fidgety or restless that you have been moving around a lot more than usual: not at all 9. Thoughts that you would be better off or of hurting yourself in some way: not at all Total score: 2 Depression Screening Interpretation: Negative Depression Screening Done: Yes 17647 - PHQ-9 Billing: Yes Source: Developed by Drs. Arias Quan, Leti Maldonado, Antwon Milner and colleagues, with an educational el from [employer]. Thrive Questionnaire Date Thrive assessed: 07/29/25 I am a: Patient What is your living situation today?: I have a steady place to live Within the past 12 months, did the food you bought not last and you didn't have the money to get more?: Never true Within the past 12 months, did you worry whether your food would run out before you got money to buy more?: Never true Do you have trouble paying for medicines?: No Do you have trouble getting transportation to medical appointments?: No Do you have trouble paying your heating and electricity bill?: No Do you have trouble taking care of your child, family member or friend?: No Do you have trouble with day-to-day activities such as bathing, preparing meals, shopping, managing finances, etc.?: No Are you currently unemployed and looking for a job?: No Are you interested in more education?: No Please select the resources that you would like help with: None Currently or been in a relationship where the following occur: No concerns reported THRIVE Score: 0 AUDIT C Alcohol Use Questionnaire (AUDIT-C) 1. How often do you have a drink containing alcohol?: Monthly or less Total Score: 1 ADRIANNA-7 AMB Questionnaire ADRIANNA-7 Date ADRIANNA - 7 assessed: 08/01/25 Feeling nervous, anxious, or on edge: 1 = Several days Not being able to stop or control worryin = Several days Worrying too much about different things: 0 = Not at all Trouble relaxin = Not at all Being so restless that it is hard to sit still: 0 = Not at all Becoming easily annoyed or irritable: 0 = Not at all Feeling afraid as if something awful might happen: 0 = Not at all Total ADRIANNA-7 score (0-4 normal; 5-9 mild; 10-14 moderate; 15-21 severe): 2 Source: Developed by Drs. Arias Quan, Leti Maldonado, Antwon Milner and colleagues, with an educational el from [employer]. ADRIANNA-7 Assessment Billing ADRIANNA-7 Assessment Tool: ADRIANNA-7 Assessment 63895 Review of Systems Const Denies chills, Denies difficulty sleeping and Denies fatigue Eyes Reports no additional complaints ENT Reports no additional complaints and Reports Normal hearing present Card Denies chest pain and Denies dyspnea Resp Denies cough and Denies dyspnea GI Details: Has history of constipation now relieved with taking Linzess Reports no additional complaints Reports as per HPI Musc Reports no additional complaints and Denies abnormal gait Skin/Breast Reports system reviewed and no additional complaints, except as documented Neuro Reports Normal hearing present, Denies abnormal gait, Denies lack of coordination, Denies focal weakness and Denies Sensory deficit (Neuro) Psych Reports as per HPI Endo Denies fatigue Wei/Lymph Reports no additional complaints Aller/Immun Reports no additional complaints Physical exam ([facility]) Vital Signs: Last Vital Signs Temp 97.9 F 08/01/25 08:04 Pulse 74 08/01/25 08:04 Resp 15 08/01/25 08:04 BP 106/70 08/01/25 08:04 Pulse Ox 96 08/01/25 08:04 Oxygen Delivery Method Room Air 08/01/25 08:04 BMI result Body Mass Index 23.5 Tobacco/Smoking Status: Tobacco use Status Tobacco use date assessed 08/01/25 08/01/25 08:11 Patient Tobacco Use Status Former Tobacco user 08/01/25 08:04 e-Cigarette/Vaping Use Never Used 08/01/25 08:04 PHQ-9: PHQ-9 Score PHQ-9: Total score 3 08/01/25 08:11 Depression Screening Interpretation: Negative Thrive Assessment: Date of Thrive Assessment Date Thrive assessed 07/29/25 08/01/25 08:04 Currently or been in a relationship where the following occur: No concerns reported Advance Care Planning discussion: Completed/Scanned Date of discussion: 08/01/25 Who was present: Patient Forms completed: Health Care Proxy Time spent: 16-45 minutes Actual minutes spent: 1 Const General: no acute distress and alert Orientation/consciousness: patient oriented x3 HENMT Head: Yes atraumatic Ears: hearing grossly normal bilaterally, external ears normal and TM's normal bilaterally General nose exam: Normal external nose present Face and sinus: Yes face symmetric Mouth: Normal oral and palatal mucosa present and moist mucous membranes Eyes Conjunctivae: conjunctivae normal Sclerae: sclerae normal Pupils: Equal, round and reactive pupils present EOM: EOMs intact bilaterally Neck Neck: Yes full ROM and Yes no lymphadenopathy Thyroid: Thyroid normal Chest Chest palpation & inspection: normal inspection of the chest Resp Effort & Inspection: normal respiratory effort and able to speak in complete sentences Auscultation: clear to auscultation bilaterally Cardio Jugular venous distension: no JVD Rate: regular rate Rhythm: regular rhythm Heart sounds: S1 normal heart sound present and S2 normal heart sound present GI Inspection: Yes normal to inspection Palpation (GI): Soft to palpation Auscultation: normal bowel sounds General: Yes no CVA tenderness Back/Spine/Pelvis Back: no CVA tenderness and No back tenderness Skin Other: Surgical scar noted on under side of both breasts and lower abdomen status post mammoplasty and tummy tuck a month ago Neuro General: patient oriented x3, gait normal, moves all extremities and no focal motor deficits Cranial nerves: Yes Equal, round and reactive pupils present and Yes Normal hearing present Cognition (Neuro): normal cognition Gait exam (Neuro): Normal gait present Motor exam (neuro): 5/5 motor strength present throughout Sensory Exam: No Sensory deficit (Neuro) Extrem General: Yes normal to inspection, Yes full ROM, Yes no pedal edema and Yes normal gait Psych Appearance: grossly normal and well kempt Mental Status: mental status grossly normal Speech and movement: Normal speech and movement present Affect: normal affect Coding Level of Care Code Est Pt Prev Care 40-64y(10479) Diagnoses Annual visit for general adult medical examination with abnormal findings Z00.01 Cigarette smoker motivated to quit F17.210 Psoriasis L40.9 Generalized anxiety disorder F41.1 History of vitamin D deficiency Z86.39 Constipation, unspecified constipation type K59.00 Constipation type: unspecified constipation type Advance directive discussed with patient Z71.89 Additional Codes PHQ-9 - 26449 - PHQ-9 Billing: Yes ([id number]) ADRIANNA-7 Assessment Billing - ADRIANNA-7 Assessment Tool: ADRIANNA-7 Assessment 18657 ([id number]) Vital Signs *Quality* - Advance Care Planning discussion: Completed/Scanned ([id number]) Vital Signs *Quality* - Time spent: 16-45 minutes ([id number]) Assessment & Plan Assessment & Plan (1) Annual visit for general adult medical examination with abnormal findings: Code(s): Z00.01 - Encounter for general adult medical examination with abnormal findings Plan: Will check appropriate labs. Recommended dental visit every 6 months and regular eye exams, at least every 2 years. Take adequate calcium in diet and vitamin-D 3 at 2000 IU per cap once a day, in addition to weight-bearing exercises to help maintain good muscle tone and weight control. Instructed to do self-breast exam, and continue to get yearly mammogram, currently up-to-date, goes to [facility] for her routine OBGYN and pelvic exam. Patient does not want to get any vaccines (2) Cigarette smoker motivated to quit: Code(s): F17.210 - Nicotine dependence, cigarettes, uncomplicated Plan: Started on varenicline starter pack, discussed on proper way of taking it, and possible adverse effects from taking the medication. Will see her back for follow-up by telehealth in 4 weeks after starting medication. (3) Psoriasis: Comment: Followed at [facility] by Dr. Parsons, previously on Skyrizi Code(s): L40.9 - Psoriasis, unspecified Category: Medical Plan: Off Skyrizi, followed at [facility] (4) Generalized anxiety disorder: Code(s): F41.1 - Generalized anxiety disorder Category: Medical Plan: Continue on buspirone 5 mg 1 tab twice a day, refill sent (5) History of vitamin D deficiency: Code(s): Z86.39 - Personal history of other endocrine, nutritional and metabolic disease Category: Medical Plan: Will check vitamin-D level (6) Constipation: Code(s): K59.00 - Constipation, unspecified Category: Medical Qualifiers: Constipation type: unspecified constipation type Qualified Code(s): K59.00 - Constipation, unspecified Plan: Continued on Linzess (7) Advance directive discussed with patient: Code(s): Z71.89 - Other specified counseling Plan: Initiated the conversation about Advanced Directives. Advanced Directives help patients prepare for current and future decisions about their medical treatment and place of care. Discussed with patient that it is a process where a patients current condition and prognosis are reviewed, their wishes for information regarding their illness are elicited, and likely medical dilemmas are presented and options discussed. Healthcare proxy form completed today. The form can be amended as needed, reviewed yearly and make changes as needed Orders: Orders Basic Metabolic Panel Fasting Today F41.1 - Generalized anxiety disorder, K59.00 - Constipation, unspecified, L40.9 - Psoriasis, unspecified, Z00.01 - Encounter for general adult medical examination with abnormal findings, Z71.89 - Other specified counseling, Z86.39 - Personal history of other endocrine, nutritional and metabolic disease Hemoglobin and Hematocrit Today F41.1 - Generalized anxiety disorder, K59.00 - Constipation, unspecified, L40.9 - Psoriasis, unspecified, Z00.01 - Encounter for general adult medical examination with abnormal findings, Z71.89 - Other s pecified counseling, Z86.39 - Personal history of other endocrine, nutritional and metabolic disease Lipid Panel Today F41.1 - Generalized anxiety disorder, K59.00 - Constipation, unspecified, L40.9 - Psoriasis, unspecified, Z00.01 - Encounter for general adult medical examination with abnormal findings, Z71.89 - Other specified counseling, Z86.39 - Personal history of other endocrine, nutritional and metabolic disease Alanine Aminotransferase Today F41.1 - Generalized anxiety disorder, K59.00 - Constipation, unspecified, L40.9 - Psoriasis, unspecified, Z00.01 - Encounter for general adult medical examination with abnormal findings, Z71.89 - Other specified counseling, Z86.39 - Personal history of other endocrine, nutritional and metabolic disease Aspartate Amino Transferase Today F41.1 - Generalized anxiety disorder, K59.00 - Constipation, unspecified, L40.9 - Psoriasis, unspecified, Z00.01 - Encounter for general adult medical examination with abnormal findings, Z71.89 - Other specified counseling, Z86.39 - Personal history of other endocrine, nutritional and metabolic disease Vitamin D 25-OH Total Today F41.1 - Generalized anxiety disorder, K59.00 - Constipation, unspecified, L40.9 - Psoriasis, unspecified, Z00.01 - Encounter for general adult medical examination with abnormal findings, Z71.89 - Other specified counseling, Z86.39 - Personal history of other endocrine, nutritional and metabolic disease Medications: New varenicline tartrate PO PER PKG DIR 53 ea 0RF F17.210 - Nicotine dependence, cigarettes, uncomplicated Refilled buspirone 5 mg PO BID 180 tabs 4RF 3 months F41.1 - Generalized anxiety disorder
== END 2025-08-01 08:47 | disposition home or self-care (01) ==
LOC: HO.HMCC 07:57
PROVIDERS: PCP Internal Medicine; Visit Provider Internal Medicine
DX: Z00.01 Encounter for general adult medical examination with abnormal findings (principal); F17.210 Nicotine dependence, cigarettes, uncomplicated; L40.9 Psoriasis, unspecified; F41.1 Generalized anxiety disorder; Z86.39 Personal history of other endocrine, nutritional and metabolic disease; K59.00 Constipation, unspecified; Z71.89 Other specified counseling; Z00.00 Encounter for general adult medical examination without abnormal findings

== ENCOUNTER → 2025-08-01 07:57 | Outpatient (BNVA) | payer OTHER, SELFPAY | PROVIDERS: PCP Internal Medicine; Visit Provider Internal Medicine | DX: Z00.01 Encounter for general adult medical examination with abnormal findings (principal); L40.9 Psoriasis, unspecified; F41.1 Generalized anxiety disorder; K59.00 Constipation, unspecified; F17.210 Nicotine dependence, cigarettes, uncomplicated; Z86.39 Personal history of other endocrine, nutritional and metabolic disease; Z71.89 Other specified counseling | CPT/HCPCS: 96127 ==

== ENCOUNTER 2025-08-20 06:12 | Outpatient (REF) | payer OTHER, SELFPAY ==
[2025-08-20 10:32] LABS: Hematocrit 43.2 % (37.0-47.0); Hemoglobin 14.3 g/dl (12.0-16.0)
[2025-08-20 10:51] LABS: Alanine Aminotransferase 12 U/L (0-31); Anion Gap 11 (12-20); Aspartate Amino Transferase 21 U/L (5-31); Blood Urea Nitrogen 11 mg/dL (9-16); Calcium 8.7 mg/dL (8.4-10.2); Carbon Dioxide 26 mmol/L (22-29); Chloride 109 mmol/L (96-108); Cholesterol 159 mg/dL (<200); Estimated Glomerular Filt Rate > 60; HDL Cholesterol 43 mg/dL (>40); Potassium 3.9 mmol/L (3.3-5.1); Sodium 142 mmol/L (135-145); Triglycerides 71 mg/dL (<150)
== END 2025-08-20 06:13 | disposition home or self-care (01) ==
LOC: HO.HMGCLDS 06:12
PROVIDERS: PCP Internal Medicine; Visit Provider Internal Medicine
DX: Z00.01 Encounter for general adult medical examination with abnormal findings (principal); F41.1 Generalized anxiety disorder; K59.00 Constipation, unspecified; L40.9 Psoriasis, unspecified; Z71.89 Other specified counseling; Z86.39 Personal history of other endocrine, nutritional and metabolic disease
CPT/HCPCS: 36415; 80048; 80061; 82306; 84450; 84460; 85014; 85018

== ENCOUNTER 2025-08-29 10:19 | Outpatient (AMB) | payer OTHER, SELFPAY ==
--- NOTE | 2025-08-29 10:24 | A.OFFPC_ITS ---
Vital Signs 08/29/25 10:31 Height 5 ft 5 in Weight 140 lb BMI 23.3 BP 92/62 Blood Pressure Location Rt brachial Position Sitting Pulse 69 Pulse Source Pulse Oximeter Temp 98.0 F Temp Source Oral Pulse Oximetry (%) 97 Oxygen Delivery Method Room Air Intake Visit Reasons: 4 week follow up Intake Note: Pt is here today for her 4wks Acid Condenser Required: No Allergies aspirin Adverse Reaction (Unknown, Verified 08/29/25 10:48) nose bleed Medication List - Last Reconciled 08/29/25 by Tresa Walden MD buspirone 5 mg PO BID 3 months fluoride (sodium) 1.1% (SF 5000 Plus) appl PO lactobacillus combination no.9 (Adult 50 Plus Probiotic) PO levonorgestrel (Liletta) intrauterine Linzess (linaclotide) 72 mcg PO QAM NS varenicline tartrate PO PER PKG DIR Tobacco use date assessed: 08/29/25 Dental Screening Dental Screen Date: 08/29/25 Did you have a dental visit in the last 12 months?: Yes Did you have a dental problem in the last 6 months where you did not have access to dental care?: No Was dental information given to patient?: Patient has dentist HPI 4 week follow up HPI Details 40-year-old lady here today for follow-u p on her smoking cessation after starting varenicline starter pack patient states that she has been tolerating medication well, has stopped smoking completely on the 4th week of the pack.. States that she had some wierd dreams several nights after taking it, but no nausea reported. Has been taking Linzess for idiopathic constipation and has been able to move her bowels regularly. Has generalized anxiety disorder currently stable and controlled on buspirone 5 mg 1 tablet twice a day. [facility] Medical History (Updated 08/29/25 @ 11:03 by Tresa Walden MD) Former cigarette smoker On varenicline therapy History of vitamin D deficiency Generalized anxiety disorder Asymptomatic microscopic hematuria Psoriasis Surgical History Hx of breast reduction, elective No pertinent past surgical history Family History Father Alcoholism Acute [place] Paternal Grandmother Breast cancer Diabetes mellitus Social History Housing: House Patient Tobacco Use Status: Former Tobacco user e-Cigarette/Vaping Use: Never Used service: No Current occupational status: employed Cognitive needs: No Hearing needs: No Vision needs: No Questionnaire PHQ-9 Over the last 2 weeks, how often have you been bothered by any of the following problems? 1. Little interest or pleasure in doing things: not at all 2. Feeling down, depressed, or hopeless: not at all 3. Trouble falling or staying asleep, or sleeping too much: not at all 4. Feeling tired or having little energy: not at all 5. Poor appetite or overeating: not at all 6. Feeling bad about yourself - or that you are a failure or have let yourself or your family down: not at all 7. Trouble concentrating on things, such as reading the newspaper or watching television: not at all 8. Moving or speaking so slowly that other people could have noticed. Or the opposite - being so fidgety or restless that you have been moving around a lot more than usual: not at all 9. Thoughts that you would be better off or of hurting yourself in some way: not at all Total score: 0 Depression Screening Interpretation: Negative Depression Screening Done: Yes Source: Developed by Drs. Arias Quan, Leti Maldonado, Antwon Milner and colleagues, with an educational el from [employer]. Thrive Questionnaire Date Thrive assessed: 07/29/25 I am a: Patient What is your living situation today?: I have a steady place to live Within the past 12 months, did the food you bought not last and you didn't have the money to get more?: Never true Within the past 12 months, did you worry whether your food would run out before you got money to buy more?: Never true Do you have trouble paying for medicines?: No Do you have trouble getting transportation to medical appointments?: No Do you have trouble paying your heating and electricity bill?: No Do you have trouble taking care of your child, family member or friend?: No Do you have trouble with day-to-day activities such as bathing, preparing meals, shopping, managing finances, etc.?: No Are you currently unemployed and looking for a job?: No Are you interested in more education?: No Please select the resources that you would like help with: None Currently or been in a relationship where the following occur: No concerns reported THRIVE Score: 0 ADRIANNA-7 AMB Questionnaire ADRIANNA-7 Date ADRIANNA - 7 assessed: 08/29/25 Feeling nervous, anxious, or on edge: 1 = Several days Not being able to stop or control worryin = Not at all Worrying too much about different things: 1 = Several days Trouble relaxin = Not at all Being so restless that it is hard to sit still: 0 = Not at all Becoming easily annoyed or irritable: 0 = Not at all Feeling afraid as if something awful might happen: 0 = Not at all Total ADRIANNA-7 score (0-4 normal; 5-9 mild; 10-14 moderate; 15-21 severe): 2 Source: Developed by Drs. Arias Quan, Leti Maldonado, Antwon Milner and colleagues, with an educational el from [employer]. ADRIANNA-7 Assessment Billing ADRIANNA-7 Assessment Tool: ADRIANNA-7 Assessment 39283 (Controlled on buspirone) Review of Systems Const Denies difficulty sleeping and Denies fatigue Eyes Reports no additional complaints ENT Reports no additional complaints Card Denies chest pain and Denies dyspnea Resp Denies cough and Denies dyspnea GI Details: Has history of constipation now relieved with taking Linzess Reports no additional complaints Musc Reports no additional complaints Skin/Breast Reports system reviewed and no additional complaints, except as documented Neuro Denies lack of coordination, Denies focal weakness and Denies Sensory deficit (Neuro) Psych Reports no additional complaints Endo Denies fatigue Wei/Lymph Reports no additional complaints Aller/Immun Reports no additional complaints Physical exam (Primary Care) Vital Signs: Last Vital Signs Temp 98.0 F 08/29/25 10:31 Pulse 69 08/29/25 10:31 BP 92/62 08/29/25 10:31 Pulse Ox 97 08/29/25 10:31 Oxygen Delivery Method Room Air 08/29/25 10:31 BMI result Body Mass Index 23.3 Tobacco/Smoking Status: Tobacco use Status Tobacco use date assessed 08/29/25 08/29/25 10:28 Patient Tobacco Use Status Former Tobacco user 08/29/25 10:28 e-Cigarette/Vaping Use Never Used 08/29/25 10:28 Depression Screening Interpretation: Negative Thrive Assessment: Date of Thrive Assessment Date Thrive assessed 07/29/25 08/29/25 10:28 Currently or been in a relationship where the following occur: No concerns reported Const General: no acute distress and alert Orientation/consciousness: patient oriented x3 HENMT Ears: external ears normal General nose exam: Normal external nose present Face and sinus: Yes face symmetric Neck Neck: Yes full ROM and Yes no lymphadenopathy Resp Effort & Inspection: normal respiratory effort and able to speak in complete sentences Auscultation: clear to auscultation bilaterally Cardio Rate: regular rate Rhythm: regular rhythm Heart sounds: S1 normal heart sound present and S2 normal heart sound present Neuro General: patient oriented x3, gait normal, moves all extremities and no focal motor deficits Cognition (Neuro): normal cognition Gait exam (Neuro): Normal gait present Sensory Exam: No Sensory deficit (Neuro) Extrem General: Yes full ROM and Yes normal gait Psych Appearance: grossly normal and well kempt Mental Status: mental status grossly normal Speech and movement: Normal speech and movement present Affect: normal affect Coding Level of Care Code Est Pt Level 4 (77350) Diagnoses On varenicline therapy Z79.899 Generalized anxiety disorder F41.1 Constipation, unspecified constipation type K59.00 Constipation type: unspecified constipation type Additional Codes ADRIANNA-7 Assessment Billing - ADRIANNA-7 Assessment Tool: ADRIANNA-7 Assessment 16151 ([id number]) Assessment & Plan Assessment & Plan (1) On varenicline therapy: Code(s): Z79.899 - Other [facility] (current) drug therapy Category: Medical Plan: Tolerating varenicline, will continue on 1 mg taken 1 tablet twice a day with meals and a glass of water for the next 2 months at least (2) Generalized anxiety disorder: Code(s): F41.1 - Generalized anxiety disorder Category: Medical Plan: Continue buspirone 5 mg 1 tablet twice a day (3) Constipation: Code(s): K59.00 - Constipation, unspecified Category: Medical Qualifiers: Constipation type: unspecified constipation type Qualified Code(s): K59.00 - Constipation, unspecified Plan: Continue on Linzess 72 mcg daily in the morning. Advised to try doing yoga or meditation exercises, stay active, continue with increased fiber in diet Orders: Orders Glucose Fasting 05/17/26 K59.00 - Constipation, unspecified, Z13.1 - Encounter for screening for diabetes mellitus, Z13.220 - Encounter for screening for lipoid disorders, Z86.39 - Personal history of other endocrine, nutritional and metabolic disease Lipid Panel 05/17/26 K59.00 - Constipation, unspecified, Z13.1 - Encounter for screening for diabetes mellitus, Z13.220 - Encounter for screening for lipoid disorders, Z86.39 - Personal history of other endocrine, nutritional and m etabolic disease Vitamin D 25-OH Total 05/17/26 K59.00 - Constipation, unspecified, Z13.1 - Encounter for screening for diabetes mellitus, Z13.220 - Encounter for screening for lipoid disorders, Z86.39 - Personal history of other endocrine, nutritional and metabolic disease Medications: New varenicline tartrate 1 mg PO BID 56 tabs 2RF Discontinued varenicline tartrate Discontinued Reason: Doctor's Order PO PER PKG DIR 53 ea 0RF F17.210 - Nicotine dependence, cigarettes, uncomplicated
[2025-08-29 10:31] VITALS: BP 92/62; PULSE 69; TEMP 36.7; O2SAT 97; BMI 23.3
== END 2025-08-29 10:55 | disposition home or self-care (01) ==
LOC: HO.HMCC 10:19
PROVIDERS: PCP Internal Medicine; Visit Provider Internal Medicine
DX: Z79.899 Other long term (current) drug therapy (principal); F41.1 Generalized anxiety disorder; K59.00 Constipation, unspecified

== ENCOUNTER → 2025-08-29 10:19 | Outpatient (BNVA) | payer OTHER, SELFPAY | PROVIDERS: PCP Internal Medicine; Visit Provider Internal Medicine | DX: F41.1 Generalized anxiety disorder (principal); K59.00 Constipation, unspecified; F17.210 Nicotine dependence, cigarettes, uncomplicated; Z86.39 Personal history of other endocrine, nutritional and metabolic disease; Z79.899 Other long term (current) drug therapy | CPT/HCPCS: 96127 ==